=== PATIENT | female | born 1940 | race Caucasian/White ===

== ENCOUNTER 2018-04-21 09:37 | Emergency (ER) | payer MEDICARE, OTHER ==
[~2018-04-21] VITALS: Ht 167.6 cm; Wt 72.6 kg
[2018-04-21] MEDS ORDERED: ASPIR 8181 MG PO (09:53)
[2018-04-21] MEDS ORDERED: CALCIUM 600 +1 EAC1 PO (09:53)
[2018-04-21] MEDS ORDERED: COZAAR 50 MG TA50 M2 PO (09:54)
[2018-04-21] MEDS ORDERED: BENADRYL25 MG PO (09:55)
[2018-04-21] MEDS ORDERED: DILTIAZEM ER360 M1 PO (09:55)
[2018-04-21] MEDS ORDERED: MEDROL4 M1 PO (09:56)
[2018-04-21 10:07] LABS: ABSOLUTE EOSINOPHILS 0.1 thou/uL (0.0-0.7); ABSOLUTE LYMPHOCYTES 0.8 thou/uL (0.8-5.3); ABSOLUTE MONOCYTES 0.2 thou/uL (0.0-1.2); ABSOLUTE NEUTROPHILS 7.7 thou/uL (1.6-8.1); BASOPHILS 0.4 %; EOSINOPHILS 0.7 %; HEMATOCRIT 41.4 % (37.0-47.0); HEMOGLOBIN 13.9 gm/dL (12.0-15.0); LYMPHOCYTES 9.4 %; MCH 30.9 pg (26.0-34.0); MCHC 33.7 g/dL (28.0-37.0); MCV 91.9 fL (80.0-100.0); MONOCYTES 1.8 %; MPV 8.9 fl. (7.2-11.1); NUCLEATED RBCS 0 /100WBC; PLATELET COUNT* 260 thou/uL (150-400); POLYS 87.7 %; WBC 8.7 thou/uL (4.0-11.0)
[2018-04-21 10:14] LABS: CALCIUM 9.3 mg/dL (8.5-10.1)
[2018-04-21 10:19] LABS: ALBUMIN 3.6 g/dL (3.4-5.0); TOTAL PROTEIN 7.1 g/dL (6.4-8.2)
[2018-04-21] MEDS ORDERED: PREDNISONE 20 M20 M1 PO (10:19)
[2018-04-21] MEDS ORDERED: ZYRTEC 10 MG TA10 MG PO (10:19)
[2018-04-21] MEDS ORDERED: PEPCID40 MG PO (10:19)
[2018-04-21 11:46] VITALS: BP 139/93
== END 2018-04-21 11:46 | disposition home or self-care (01) ==
LOC: M.ERS 09:37
PROVIDERS: Family Medicine
DX: T78.3XXA Angioneurotic edema, initial encounter (principal); I48.91 Unspecified atrial fibrillation; Z88.2 Allergy status to sulfonamides; Z91.013 Allergy to seafood